=== PATIENT | female | born 1955 | race Caucasian/White ===

== ENCOUNTER → 2017-08-22 | Outpatient (CLI) | payer BC | LOC: M.CT 16:31 | DX: R91.8 Other nonspecific abnormal finding of lung field (principal); I70.0 Atherosclerosis of aorta ==

== ENCOUNTER → 2018-01-17 | Outpatient (CLI) | payer BC | LOC: M.CT 16:09 | DX: J92.9 Pleural plaque without asbestos (principal); R91.1 Solitary pulmonary nodule; R91.8 Other nonspecific abnormal finding of lung field ==